=== PATIENT | male | born 1980 | race Caucasian/White ===

== ENCOUNTER 2021-04-16 17:31 | Emergency (ER) | payer OTHER ==
[2021-04-16 17:38] VITALS: BP 160/90
[2021-04-16] MEDS ORDERED: BACITRACIN ZINC OINT 1 PACKET TOP STA (17:58)
[2021-04-16] MEDS ORDERED: TETANUS/DIPHTHERIA/PERTUSSIS 0.5 ML SYRINGE IM ONE (17:58)
--- NOTE | 2021-04-16 18:22 | ED Physician Documentation ---
History of Present Illness - Stated complaint Stated Complaint: CHAINSAW VS LT LEG - Chief complaint Chief Complaint: Laceration - Additonal information Additional information: 40-year-old male presents emergency department for evaluation of lacerations on the top of his left knee sustained when using a chainsaw at home. Last tetanus is greater than 10 years. Review of Systems Eyes: reports: Reviewed and negative Ears: reports: Reviewed and negative Cardiac: reports: Reviewed and negative Respiratory: reports: Reviewed and negative GI: reports: Reviewed and negative : reports: Reviewed and negative Skin: reports: Laceration (s) (Left knee) Musculoskeletal: reports: Extremity pain (Left knee) PD PAST MEDICAL HISTORY - Allergies Allergies/Adverse Reactions: Allergies Allergy/AdvReac Type Severity Reaction Status Date / Time No Known Drug Allergies Allergy Verified 04/16/21 17:34 PD ED PE EXPANDED - General General: Alert, No acute distress, Well developed/nourished - Derm Derm: Laceration(s) (Multiple superficial lacerations on the left knee and left lateral knee associated with a chainsaw incident. These look more like deeper abrasions then physical lacerations and are not amenable to primary closure.) - Extremities Extremities: Left knee (Normal flexion and extension against resistance. Mild limp. No laxity. Multiple superficial lacerations/abrasions consistent with a chainsaw injury.) Results - Vitals Vitals: Vital Signs - 24 hr 04/16/21 17:34 Temperature 36.5 C Heart Rate 86 Respiratory 18 Rate Blood Pressure 160/90 H O2 Saturation 96 Oxygen O2 Source Room air PD MEDICAL DECISION MAKING - ED course Complexity details: reviewed results, re-evaluated patient, d/w patient ED course: 40-year-old male presents emergency department for evaluation of lacerations on the top of his left knee and left lateral knee sustained when using a chainsaw at home. These are some more superficial abrasions than actual lacerations and not amenable to primary closure. Patient's tetanus was updated today. Wounds were thoroughly cleansed and appropriately debrided. Bacitracin was applied. Routine wound care and emergent return precautions were discussed for any concerns of infection. Departure - Departure Disposition: 01 Home, Self Care Clinical Impression: Laceration of left knee Qualifiers: Encounter type: initial encounter Qualified Code(s): S81.012A - Laceration without foreign body, left knee, initial encounter Condition: Stable Record reviewed to determine appropriate education?: Yes Comments: Shmuel your tetanus was updated today and is good for the next 7 to 10 years. The lacerations that you have on the top and side of your knee are superficial in nature and more like abrasions. They would not benefit nor were they be able to be closed by suture. I recommend that you wash these gently with warm soap and water twice daily and apply any antibiotic ointment such as bacitracin or Neosporin. Likely take about 2 weeks for these to fully heal. Return to the ER for fevers, redness, swelling, milky drainage, red streaking or any concerns of infection.
--- NOTE | 2021-04-16 18:59 | XRAY Report ---
PROCEDURE: Knee 2 View LT INDICATIONS: laceration after chainsaw accident TECHNIQUE: 2 views of the left knee were acquired. COMPARISON: None. FINDINGS: Bones: No fractures or dislocations. No suspicious bony lesions. Soft tissues: No joint effusion. No radiopaque foreign body. No suspicious soft tissue calcificatio ns. IMPRESSION: 1. No fracture or radiopaque foreign body. Reviewed by: Matt Choi MD on 04/16/2021 5:58 PM [place] Approved by: Matt Choi MD on 04/16/2021 5:58 PM [place] Station ID: [id number]
== END 2021-04-16 18:30 | disposition home or self-care (01) ==
LOC: ED 17:31
DX: S81.012A Laceration without foreign body, left knee, initial encounter (principal); S80.212A Abrasion, left knee, initial encounter; W29.3XXA Contact with powered garden and outdoor hand tools and machinery, initial encounter; Y93.H9 Activity, other involving exterior property and land maintenance, building and construction; Y92.007 Garden or yard of unspecified non-institutional (private) residence as the place of occurrence of the external cause; Z23 Encounter for immunization
CPT/HCPCS: 90471; 99282; 99283

== ENCOUNTER 2021-05-31 17:41 | Emergency (ER) | payer OTHER ==
[2021-05-31] MEDS ORDERED: LIDOCAINE 1% 2 ML VIAL SUBQ STA (18:23)
--- NOTE | 2021-05-31 18:26 | ED Physician Documentation ---
History of Present Illness - Stated complaint Stated Complaint: LT FOOT INJ - Chief complaint Chief Complaint: Laceration - Additonal information Additional information: 40-year-old male presents the emergency department for evaluation of a laceration on the dorsum of his left foot. He has been drinking today and was using a chainsaw. He has an approximate 3 inch laceration to the dorsum of the left foot over the first and second metatarsals. Last tetanus 2020 Review of Systems Constitutional: reports: Reviewed and negative Throat: reports: Reviewed and negative Cardiac: reports: Reviewed and negative Respiratory: reports: Reviewed and negative GI: reports: Reviewed and negative Skin: reports: Laceration (s) PD PAST MEDICAL HISTORY - Present Medications Home Medications: Ambulatory Orders Medication Instructions Recorded Confirmed HYDROcod/ACETAM 5/325 [[place] 5/325] 1 tablet PO BID PRN #10 tablet 05/31/21 cephALEXin [Keflex] 500 mg PO Q6H #28 cap 05/31/21 - Allergies Allergies/Adverse Reactions: Allergies Allergy/AdvReac Type Severity Reaction Status Date / Time No Known Drug Allergies Allergy Verified 05/31/21 18:15 PD ED PE EXPANDED - Extremities Extremities: Left foot (3 inch diagonal laceration dorsum of left foot over the great and index toe metatarsals. 2+ DP pulse. Preserved flexion extension of those digits distally.) Results - Vitals Vitals: Vital Signs - 24 hr 05/31/21 18:00 Temperature 36.2 C L Heart Rate 91 Respiratory 16 Rate Blood Pressure 134/87 H O2 Saturation 97 Oxygen O2 Source Room air - Rads (name of study) left foot xray Radiology: Final report received (Defect in the medial margin of the first metatarsal likely related to penetrating trauma without complete fracture.) Procedures - Laceration (location) left foot Length in cm: 7 Wound type: Linear, Irregular, Into muscle, Contaminated, Exposure of bone Neurovascular status: Sensory intact, Motor intact Tendon involvement: Tendon intact Anesthesia: Lidocaine 1% Wound preparation: Chlorhexadine, Irrigated copiously NS, Debrided moderately, Wound explored, To the base, debridement of wound edges (traumatic laceration/avulsion) Skin layer closure: Annita (7) Other: Patient tolerated well, No complications, Neurovascular intact, Tetanus UTD PD MEDICAL DECISION MAKING - ED course Complexity details: reviewed results, re-evaluated patient, d/w patient ED course: 40-year-old male presents emergency department for evaluation of laceration on the dorsum of his left foot sustained this evening when using a chainsaw. He has an approximate 7 cm laceration on the dorsum of the foot with exposure of bone and cartilage. X-ray does suggest a partial metatarsal fracture. Wound was cleansed heavily with soap and irrigated with saline. It did require moderate debridement. The wound was closed with 7 annita. Patient was given 1 g of ceftriaxone here in the emergency department will be discharged with Keflex. Given that this is a fracture that extends into the first metatarsal he is placed in a short leg posterior splint and given crutches. Will be advised nonweightbearing until seen by orthopedics. Emergent return precautions were discussed for concerns of infection. Departure - Departure Disposition: Home, Self Care Clinical Impression: Laceration of left foot excluding toes Qualifiers: Encounter type: initial encounter Qualified Code(s): S91.312A - Laceration without foreign body, left foot, initial encounter Fracture of first metatarsal bone of left foot Qualifiers: Encounter type: initial encounter Fracture type: open Fracture alignment: nondisplaced Qualified Code(s): S92.315B - Nondisplaced fracture of first metatarsal bone, left foot, initial encounter for open fracture Condition: Stable Record reviewed to determine appropriate education?: Yes Instructions: ED Laceration Foot Follow-Up: William Nuñez MD [Provider Admit Priv/Credential] - Prescriptions: cephALEXin [Keflex] 500 mg PO Q6H #28 cap HYDROcod/ACETAM 5/325 [[place] 5/325] 1 tablet PO BID PRN #10 tablet PRN Reason: Pain Comments: Abdomen you're seen in the emergency department today for a laceration on the top of your left foot. Unfortunately this laceration does extend to the first metatarsal bone and you do have an incomplete fracture of this bone. This wound and laceration are at very high risk for infection. Your tetanus is up-to-date. You were given an injection of an antibiotic here in the emergency department and a prescription for cephalexin has been sent to the [facility] in [place]. Please fill it and begin taking tomorrow. Please call to arrange follow-up at our orthopedics clinic. You should be seen next week. You're to be nonweightbearing on this foot. The temporary splint that is in place cannot get wet. If it gets wet return to the ER to have it replaced. If despite the antibiotics and the pain medication you are having increased pain, fevers numbness or tingling of your toes, you have worsening pain please return immediately to the ER for repeat evaluation. The annita that are in place can be removed in your follow-up orthopedics appointment in 7 to 10 days.
[2021-05-31] MEDS ORDERED: LIDOCAINE 1% 2 ML VIAL MC ONE (18:28)
[2021-05-31] MEDS: LIDOCAINE-MPF 2% 5 ML VIAL SUBQ STA (18:30)
--- NOTE | 2021-05-31 18:45 | XRAY Report ---
PROCEDURE: Foot 3 View LT INDICATIONS: injury/pain TECHNIQUE: 3 views of the foot were acquired. COMPARISON: None FINDINGS: Bones: Small defect noted in the medial margin of the first metatarsal likely related to penetrating trauma. Soft tissues: No tibiotalar joint effusion. Achilles tendon appears normal. Multiple very small rad iodense foreign bodies noted in the medial soft tissues of the foot adjacent to the metatarsal defect . IMPRESSION: Small defect in the medial margin of the first metatarsal likely related to penetrating trauma withou t complete fracture. Reviewed by: Jessika Russ MD, PhD on 05/31/2021 5:43 PM [facility] Approved by: Jessika Russ MD, PhD on 05/31/2021 5:43 PM [facility] Station ID: [id number]
[2021-05-31] MEDS: LIDOCAINE-MPF 1% 5 ML VIAL MC ONE (19:03)
[2021-05-31] MEDS: BACITRACIN ZINC OINT 1 PACKET TOP STA (19:03)
[2021-05-31] MEDS: cefTRIAXone 1 GM VIAL IM STA (19:03)
[2021-05-31 19:40] VITALS: BP 129/88
== END 2021-05-31 19:45 | disposition home or self-care (01) ==
LOC: ED 17:41
DX: S92.315B Nondisplaced fracture of first metatarsal bone, left foot, initial encounter for open fracture (principal); S91.312A Laceration without foreign body, left foot, initial encounter; W29.3XXA Contact with powered garden and outdoor hand tools and machinery, initial encounter
CPT/HCPCS: 13132; 73630; 96372; 99283; 99284; A9270